=== PATIENT | female | born 1940 | race Caucasian/White ===

== ENCOUNTER 2019-11-12 09:01 | Observation (INO) | payer MEDICARE ==
[~2019-11-12 09:01] MED LIST: ACETAMINOPHEN TAB 500 MG TAB PO ONE; DEXAMETHASONE SOD PHOSPHATE 10 MG/ML 1 ML VIAL IV ONE; HEPARIN SODIUM,PORCINE 5,000 UNIT/ML 1 ML VIAL SQ ONE; HYDROmorphone 0.5 MG/0.5 ML SYRINGE IVP PRN; LIDOCAINE 1% (10MG/ML) FOR IV START INTRADERMA PRN; ONDANSETRON 4 MG/2 ML VIAL IVP ONE
[2019-11-12] MEDS: LACTATED RINGERS 1,000 ML IV SCH ×2 (09:53→16:39)
[2019-11-12 10:36] LABS: Anisocytosis Slight; Basophils % (A) 1 %; Eosinophils % (A) 1 %; HCT 35.6 % (34.0-46.0); HGB 10.5 gm/dL (11.4-16.0); Hypochromasia Marked; Lymphocytes # (A) 0.6 k/uL (1.0-4.8); Lymphocytes % (A) 19 %; MCHC 29.6 g/dL (31.0-37.0); MCV 101.4 fL (80.0-100.0); Macrocytosis Moderate; Mean Platelet Volume 8.5; Monocytes # (A) 0.3 k/uL (0-1.0); Monocytes % (A) 10 %; Neutrophils # (A) 2.1 k/uL (1.3-7.7); Neutrophils % (A) 66 %; Platelet Count 118 k/uL (150-450); RBC 3.51 m/uL (3.80-5.40); RDW 19.1 % (11.5-15.5); WBC 3.2 k/uL (3.8-10.6)
[2019-11-12 10:40] LABS: INR 1.4 (<1.2); Prothrombin Time 13.7 sec (9.0-12.0)
[2019-11-12 11:01] LABS: Albumin 2.8 g/dL (3.5-5.0); Calcium 8.7 mg/dL (8.4-10.2); Magnesium 1.7 mg/dL (1.6-2.3); Phosphorus 3.2 mg/dL (2.5-4.5); Potassium 4.3 mmol/L (3.5-5.1); Total Protein 7.2 g/dL (6.3-8.2)
--- NOTE | 2019-11-12 11:05 | P.GSHP ---
History of Present Illness H&P Date: 11/12/19 Chief Complaint: Umbilical hernia 79-year-old female with history of swelling at the umbilicus for the last several weeks. Describes increasing pain there. Patient found recently to have significant liver dysfunction with ascites and evidence of developing cirrhosis. Etiology unclear but may be related to previous adjuvant breast cancer therapy. Patient denies alcohol use in the past. Patient has been on diuretics for the last few weeks now. She has had some issues with electrolyte imbalance that is being corrected. Currently on Aldactone. 2 days ago had a single dose of Lasix as well. Was complaining of leg swelling which has improved. Patient has informed her family that she is having enough pain at the hernia site that she would rather risk having it repaired than living with it any longer. No change in bowel habits. Labs today show mild leukopenia and thrombocytopenia. INR 1.4. CMP pending. She has not had a paracentesis thus far. Plan is for fluid to be sent intraoperatively for various studies. Past Medical History Past Medical History: Cancer, Hypertension, Thyroid Disorder Additional Past Medical History / Comment(s): BREAST CANCER History of Any Multi-Drug Resistant Organisms: None Reported Past Surgical History: Breast Surgery, Orthopedic Surgery Additional Past Surgical History / Comment(s): RIGHT WRIST -WITH A PLATE Past Anesthesia/Blood Transfusion Reactions: No Reported Reaction Smoking Status: Never smoker - Past Family History Mother Family Medical History: Coronary Artery Disease (CAD) Father Family Medical History: Cancer Additional Family Medical History / Comment(s): LUNG CANCER Medications and Allergies Home Medications Medication Instructions Recorded Confirmed Type Folic Acid 1 mg PO DAILY 11/09/19 11/12/19 History Levothyroxine Sodium [Synthroid] 25 mcg PO DAILY 11/09/19 11/12/19 History Magnesium 250 mg PO TID 11/09/19 11/12/19 History Potassium Chloride [Klor-Con 20] 20 meq PO DAILY 11/09/19 11/12/19 History Spironolactone [Aldactone] 25 mg PO DAILY 11/09/19 11/12/19 History Allergies Allergy/AdvReac Type Severity Reaction Status Date / Time No Known Allergies Allergy Verified 11/12/19 09:21 Surgical - Exam Vital Signs Temp Pulse Resp BP Pulse Ox 98.4 F 110 H 18 171/79 99 11/12/19 09:34 11/12/19 09:34 11/12/19 09:34 11/12/19 09:34 11/12/19 09:34 Physical exam: General: Well-developed, well-nourished HEENT: Normocephalic, sclerae nonicteric Abdomen: Mildly distended, not tense, fluid wave present, fluid within the umbilical hernia noted which is reducible and mildly tender, skin is viable Extremities: Mild edema Neuro: Alert and oriented Results - Labs 11/12/19 10:25 Abnormal Lab Results - Last 24 Hours (Table) 11/12/19 11/12/19 Range/Units 10:25 10:25 WBC 3.2 L (3.8-10.6) k/uL RBC 3.51 L (3.80-5.40) m/uL Hgb 10.5 L (11.4-16.0) gm/dL MCV 101.4 H (80.0-100.0) fL MCHC 29.6 L (31.0-37.0) g/dL RDW 19.1 H (11.5-15.5) % Plt Count 118 L (150-450) k/uL Lymphocytes # 0.6 L (1.0-4.8) k/uL PT 13.7 H (9.0-12.0) sec INR 1.4 H (<1.2) Assessment and Plan (1) Umbilical hernia Narrative/Plan: Clinical scenario discussed with the patient her and her daughter. Previously I've discussed her case with her son-in-law Dr. Weiss and her son Dr. Dawson Javier on multiple occasions. Patient is high-risk for any inter vention. Despite that patient having significant symptoms related to this hernia and everyone is in agreement that surgical intervention is reasonable given her degree of complaints. Will perform paracentesis intraoperatively. Fluid will be sent off for various studies. No mesh will be utilized with the surgical repair given the presence of significant ascites. Plan for admission to the hospital overnight to monitor the patient's fluid status closely. Patient lives near [place] but will be staying with her family for the next several days. Risks of bleeding, infection, recurrence, bladder and bowel injury, numbness, nerve injury, ascites leak, peritonitis, wound infection, anesthesia related complications were discussed with the patient and her family. The patient understands and wishes to proceed. Current Visit: Yes Status: Acute Code(s): K42.9 - UMBILICAL HERNIA WITHOUT OBSTRUCTION OR GANGRENE SNOMED Code(s): 201871489
[2019-11-12] MEDS ORDERED: fentaNYL (PF) 50 MCG/ML 2 ML AMP ONE (11:09)
[2019-11-12] MEDS ORDERED: LIDOCAINE 1% INJ 10MG/ML (20 ML MDV) ONE (11:09)
[2019-11-12] MEDS ORDERED: SUCCINYLCHOLINE CHLORIDE 100 MG/5 ML SYR IV ONE (11:09)
[2019-11-12] MEDS ORDERED: ETOMIDATE 2 MG/ML 10 ML VIAL ONE (11:09)
[2019-11-12] MEDS ORDERED: BUPIVACAINE (PF) 0.25% 30 ML VIAL SQ ONE (12:15)
[2019-11-12] MEDS ORDERED: ONDANSETRON 4 MG/2 ML VIAL IVP PRN (12:35)
[2019-11-12] MEDS ORDERED: HYDROmorphone 0.5 MG/0.5 ML SYRINGE IVP PRN (12:35)
[2019-11-12] MEDS ORDERED: HYDROcodone/APAP 5-325MG 1 EACH TAB PO PRN (12:35)
[2019-11-12] MEDS ORDERED: LACTATED RINGERS 1,000 ML IV ONE (12:35)
[2019-11-12] MEDS ORDERED: NALOXONE 0.4 MG/ML 1 ML VIAL IV PRN (12:35)
--- NOTE | 2019-11-12 14:34 | P.OP ---
Date of Procedure: 11/12/19 Procedure(s) Performed: PREOPERATIVE DIAGNOSIS: Umbilical hernia with abdominal ascites POSTOPERATIVE DIAGNOSIS: Same PROCEDURE: Umbilical herniorrhaphy with drainage abdominal ascites SURGEON: Arcadio EBL: Minimal ANESTHESIA: General COMPLICATIONS: None OPERATIVE PROCEDURE: The patient was placed in the operating table in the supine position. A periumbilical incision was made using the scalpel. The subcutaneous tissues were dissected bluntly. The hernia sac was identified. The umbilical attachments to the fascia were divided using electrocautery. The hernia sac was dissected back to the fascial defect. A small opening in the hernia sac was made and the ascitic fluid was evacuated. A little over 5 L was removed. This was a yellow serous fluid without particulate matter. Fluid was sampled and sent for Gram stain, culture, cell count, cytology, LDH, protein, glucose. The hernia sac was partially excised and ligated using both 3-0 Vicryl and 2-0 Vicryl sutures. This was reduced back into the preperitoneal space. No mesh was utilized during this procedure. The defect was closed using interrupted [id number] 0 Ethibond sutures. The subcutaneous tissues were reapproximated using inverted 3-0 Vicryl sutures. The umbilicus was tacked back down to the fascia using a 3-0 Vicryl suture. The skin was closed using 4-0 Monocryl sutures. Steri-Strips and sterile dressings were then applied. DISPOSITION: Stable to recovery room
[2019-11-12 14:37] LABS: Appearance,BF Clear
[2019-11-12 15:05] LABS: RBC, Body Fluid 35 /uL
[2019-11-12 15:06] LABS: Nucleated Cells, Body Fluid 20 /uL
[2019-11-12 15:09] LABS: Mononuclear WBC,Body Fluid 95 %; Polynuclear WBC,Body Fluid 5 %; Total Cells Counted,Body Fluid 100
[2019-11-12] MEDS: ALBUMIN HUMAN 25% 50 ML in EMPTY BAG 1 BAG IVPB SCH (15:30)
--- NOTE | 2019-11-12 18:49 | P.CONS ---
History of Present Illness - Reason for Consult Consult date: 11/12/19 medical management Requesting physician: Silvano Ervin - Chief Complaint Medical management - History of Present Illness 79-year-old female with PMH of hypothyroidism, hypertension controlled with diet off antihypertensive, cirrhosis of unknown etiology, history of breast cancer, umbilical [facility]nia [facility]. She underwent umbilical herniorrhaphy with drainage of abdominal ascites. [facility] has been consulted for medical management of this patient. Patient was seen after her surgery. Patient reports significant improvement in her abdominal discomfort and bloating after her surgery. She currently has no pain. She is requesting a coffee. She does report some lower extremity swelling. She denies any headache, nausea or vomiting, fever or chills, cough, chest pain, shortness of breath, palpitations, changes in urination or bowel habits. No changes in appetite or weight. She denies any dizziness, num bness/weakness/tingling of the extremities. Her vital signs are stable except for tachycardia in the 110s. CBC shows leukopenia of 3.2 and hemoglobin of 10.5 with MCV of 101.4 and platelet count of 118. INR is 1.4. CMP shows chloride of 110, BUN of 23, glucose of 106, total bilirubin of 2, AST of 40. Review of Systems All systems: negative Past Medical History Past Medical History: Cancer, Hypertension, Thyroid Disorder Additional Past Medical History / Comment(s): BREAST CANCER History of Any Multi-Drug Resistant Organisms: None Reported Past Surgical History: Breast Surgery, Hernia Repair, Orthopedic Surgery Additional Past Surgical History / Comment(s): 2015-Breast surgery with removal of right side lymph nodes. RIGHT WRIST-WITH A PLATE. Repair of umbilical Hernia 11/12/19. Drainage of paritoneal fluid (5L) 11/12/19. Past Anesthesia/Blood Transfusion Reactions: No Reported Reaction Past Psychological History: Anxiety Smoking Status: Never smoker Past Alcohol Use History: None Reported Past Drug Use History: None Reported - Past Family History Mother Family Medical History: Coronary Artery Disease (CAD) Father Family Medical History: Cancer Additional Family Medical History / Comment(s): LUNG CANCER Medications and Allergies Home Medications Medication Instructions Recorded Confirmed Type Folic Acid 1 mg PO DAILY 11/09/19 11/12/19 History Levothyroxine Sodium [Synthroid] 25 mcg PO DAILY 11/09/19 11/12/19 History Magnesium 250 mg PO TID 11/09/19 11/12/19 History Potassium Chloride [Klor-Con 20] 20 meq PO DAILY 11/09/19 11/12/19 History Spironolactone [Aldactone] 25 mg PO DAILY 11/09/19 11/12/19 History Allergies Allergy/AdvReac Type Severity Reaction Status Date / Time No Known Allergies Allergy Verified 11/12/19 09:21 Physical Exam Vitals: Vital Signs Temp Pulse Pulse Resp BP BP Pulse Ox 11/12/19 16:28 97.4 F L 114 H 16 141/65 98 11/12/19 15:28 112 H 153/70 98 11/12/19 15:14 97.2 F L 112 H 16 149/68 98 11/12/19 14:59 115 H 17 154/67 96 11/12/19 13:45 106 H 18 148/72 95 11/12/19 13:12 104 H 16 136/60 95 11/12/19 12:57 104 H 16 142/68 95 11/12/19 12:42 106 H 16 142/68 95 11/12/19 12:27 97.8 F 105 H 14 166/80 95 11/12/19 09:34 98.4 F 110 H 18 171/79 99 Intake and Output 11/12/19 11/12/19 11/12/19 06:59 14:59 22:59 Intake Total 650 Output Total 10 Balance 640 Intake: IV 650 Output: Estimated Blood Loss 10 Other: Weight 73.028 kg General: [non toxic], [no distress], [appears at stated age] Derm: [warm], [dry] Head: [atraumatic], [normocephalic], [symmetric] Eyes: [EOMI], [no lid lag], [anicteric sclera] Mouth: [no lip lesion], [mucus membranes moist] Cardiovascular: [S1S2 reg], [tachycardic], [positive DP pulse bilateral], Lungs: [CTA bilateral], [no rhonchi, no rales] , [no accessory muscle use] Abdominal: [soft], [ nontender to palpation], [no guarding], [no appreciable organomegaly], [abdominal binder applied] Ext: [no gross muscle atrophy], [1-2+ pitting edema lower extremity bilateral], [no contractures] Neuro: [no focal neurologic deficits] Psych: [alert and oriented 3] Results CBC & Chem 7: 11/12/19 10:25 11/12/19 10:25 Labs: Abnormal Lab Results - Last 24 Hours (Table) 11/12/19 11/12/19 11/12/19 Range/Units 10:25 10:25 10:25 WBC 3.2 L (3.8-10.6) k/uL RBC 3.51 L (3.80-5.40) m/uL Hgb 10.5 L (11.4-16.0) gm/dL MCV 101.4 H (80.0-100.0) fL MCHC 29.6 L (31.0-37.0) g/dL RDW 19.1 H (11.5-15.5) % Plt Count 118 L (150-450) k/uL Lymphocytes # 0.6 L (1.0-4.8) k/uL PT 13.7 H (9.0-12.0) sec INR 1.4 H (<1.2) Chloride 110 H (98-107) mmol/L BUN 23 H (7-17) mg/dL Glucose 106 H (74-99) mg/dL Total Bilirubin 2.0 H (0.2-1.3) mg/dL AST 40 H (14-36) U/L Albumin 2.8 L (3.5-5.0) g/dL Assessment and Plan Assessment: Liver cirrhosis of unknown etiology Hypothyroidism Pancytopenia with Macrocytosis Supratherapeutic INR Elevated BUN Patient is POD 0 umbillical herniorrhaphy with drainage of about 5 liters of abdominal ascites. Her pain will be controlled with Dilaudid as needed and she will be given Zofran as needed for nausea or vomiting. Ascitic fluid has been sent out for culture, LDH and glucose. GI has been consulted and workup is underway for etiology of cirrhosis (alpha-1 antitrypsin, alpha-fetoprotein, MARGARET, antimitochondrial antibody, ceruloplasmin, liver kidney microsomal antibody, protein electrophoresis and smooth muscle antibody). Iron studies have also been ordered. Patient has been started on Aldactone by GI. There are plans for liver ultrasound tomorrow morning by GI. She will be started on a low salt diet. Her Synthroid will be restarted for hypothyroidism. Her INR of 1.2 is likely related to cirrhosis. Her BUN of 23 is likely related to dehydration and she has been advised hydration by mouth. Plans to repeat CBC and CMP tomorrow morning. SCD boots for DVT prophylaxis given supratherapeutic INR. Patient will be FULL CODE. Take you for this consult. Please call with any additional questions or concerns.
[2019-11-12] MEDS: DOCUSATE 100 MG CAP PO SCH (20:19)
[2019-11-12 21:29] LABS: Glucose, BF Source Ascites; Glucose, Body Fluid 110 mg/dL; LDH, Body Fluid Source Ascites; Total Protein, Body Fluid 2300 mg/dL
[2019-11-13] MEDS ORDERED: LEVOTHYROXINE 25 MCG TAB PO SCH (06:30)
[2019-11-13 08:41] LABS: Anisocytosis Slight; Basophils % (A) 0 %; Eosinophils % (A) 0 %; HCT 29.4 % (34.0-46.0); HGB 9.2 gm/dL (11.4-16.0); Hypochromasia Marked; Lymphocytes # (A) 0.6 k/uL (1.0-4.8); Lymphocytes % (A) 13 %; MCH 31.5 pg (25.0-35.0); MCHC 31.2 g/dL (31.0-37.0); MCV 100.9 fL (80.0-100.0); Macrocytosis Moderate; Mean Platelet Volume 8.7; Monocytes # (A) 0.3 k/uL (0-1.0); Monocytes % (A) 7 %; Neutrophils # (A) 3.8 k/uL (1.3-7.7); Neutrophils % (A) 78 %; Platelet Count 100 k/uL (150-450); RBC 2.92 m/uL (3.80-5.40); RDW 18.8 % (11.5-15.5); WBC 4.8 k/uL (3.8-10.6)
--- NOTE | 2019-11-13 08:58 | P.CONS ---
History of Present Illness - Reason for Consult Consult date: 11/12/19 Ascites Requesting physician: Lindsey Calderon - Chief Complaint Hernia, ascites - History of Present Illness 79-year-old female with a medical history significant for hypothyroidism, hypertension, history of breast cancer and suspected cirrhosis with fluid overload presented to the hospital due to fluid overload and an umbilical hernia. Patient had been experiencing increased abdominal swelling and swelling of the extremities have 3 months. She had associated weight gain with the fluid overload. Patient presented to the hospital where she underwent umbilical he rnia repair and drainage of the ascites with over 5 L of ascites removed. Patient has been experiencing these symptoms of fluid overload over the past 3 months and has been started on Lasix therapy. She subsequently developed hyponatremia and medication was stopped. She does report a prior history of elevated liver enzymes but denies any treatment for these elevations. She has no significant history of heavy alcohol abuse. No prior history of decompensated liver disease denying any jaundice, encephalopathy or fluid overload current presentation. She did experience decreased oral intake and shortness of breath and associated nausea. She was previously underwent echocardiogram which was within normal limits per report and has also undergone a computed tomography scan of the abdomen with findings suggestive of a nodular cirrhotic liver and portal hypertension. Laboratory evaluation on presentation significant for WBC 3.2, hemoglobin 10.5, platelet count 118,000, INR 1.4, total bilirubin 2, alkaline phosphatase 122, AST 40 and ALT 15. Review of Systems REVIEW OF SYSTEMS: CONSTITUTIONAL: Denies any fevers, chills, but did experience with nausea and fatigue in association with fluid overload. CARDIOVASCULAR: Denies any chest pain, palpitations high or low blood pressures RESPIRATORY: Denies any shortness of breath, hemoptysis or cough. GENITOURINARY: No dysuria or hematuria. MUSCULOSKELETAL: No focal weakness reported. SKIN: Denies any new rashes or lesions, jaundice or pallor, but has had bilateral lower extremity swelling. PSYCHIATRIC: Denies any depression or anxiety, but does report mood was depressed in association with her poor quality of life with her symptoms of fluid overload and abdominal pain. NEUROLOGY: Denies headache, denies any new focal deficits. EARS/NOSE/THROAT: No recent hearing change, congestion, nasal discharge or sore throat, but is hard of hearing at baseline. EYES: No pain in eyes, discharge or change in vision. GASTROINTESTINAL: As per HPI. Past Medical History Past Medical History: Cancer, Hypertension, Thyroid Disorder Additional Past Medical History / Comment(s): BREAST CANCER History of Any Multi-Drug Resistant Organisms: None Reported Past Surgical History: Breast Surgery, Hernia Repair, Orthopedic Surgery Additional Past Surgical History / Comment(s): 2015-Breast surgery with removal of right side lymph nodes. RIGHT WRIST-WITH A PLATE. Repair of umbilical Hernia 11/12/19. Drainage of paritoneal fluid (5L) 11/12/19. Past Anesthesia/Blood Transfusion Reactions: No Reported Reaction Past Psychological History: Anxiety Smoking Status: Never smoker Past Alcohol Use History: None Reported Past Drug Use History: None Reported - Past Family History Mother Family Medical History: Coronary Artery Disease (CAD) Father Family Medical History: Cancer Additional Family Medical History / Comment(s): LUNG CANCER Medications and Allergies Home Medications Medication Instructions Recorded Confirmed Type Folic Acid 1 mg PO DAILY 11/09/19 11/12/19 History Levothyroxine Sodium [Synthroid] 25 mcg PO DAILY 11/09/19 11/12/19 History Magnesium 250 mg PO TID 11/09/19 11/12/19 History Potassium Chloride [Klor-Con 20] 20 meq PO DAILY 11/09/19 11/12/19 History Spironolactone [Aldactone] 25 mg PO DAILY 11/09/19 11/12/19 History Allergies Allergy/AdvReac Type Severity Reaction Status Date / Time No Known Allergies Allergy Verified 11/12/19 09:21 Physical Exam Vitals: Vital Signs Temp Pulse Pulse Resp BP BP Pulse Ox 11/12/19 15:28 112 H 153/70 98 11/12/19 15:14 97.2 F L 112 H 16 149/68 98 11/12/19 14:59 115 H 17 154/67 96 11/12/19 13:45 106 H 18 148/72 95 11/12/19 13:12 104 H 16 136/60 95 11/12/19 12:57 104 H 16 142/68 95 11/12/19 12:42 106 H 16 142/68 95 11/12/19 12:27 97.8 F 105 H 14 166/80 95 11/12/19 09:34 98.4 F 110 H 18 171/79 99 Intake and Output 11/12/19 11/12/19 11/12/19 06:59 14:59 22:59 Intake Total 650 Output Total 10 Balance 640 Intake: IV 650 Output: Estimated Blood Loss 10 Other: Weight 73.028 kg On physical examination, patient appears comfortable in no apparent distress. HEAD: Normocephalic, atraumatic. EYES: No scleral icterus. No conjunctival injection. MOUTH: No lesions, tongue midline. NECK: Trachea midline, no gross abnormalities. CHEST: No respiratory distress or wheezing. HEART: Regular rate and rhythm. ABDOMEN: Soft, obese. Bowel sounds are positive. No organomegaly. No guarding or rigidity. EXTREMITIES: No pedal edema. SKIN: No rashes, no jaundice. NEUROLOGIC: Alert and oriented x3. No focal deficits. Results CBC & Chem 7: 11/12/19 10:25 11/12/19 10:25 Labs: Abnormal Lab Results - Last 24 Hours (Table) 11/12/19 11/12/19 11/12/19 Range/Units 10:25 10:25 10:25 WBC 3.2 L (3.8-10.6) k/uL RBC 3.51 L (3.80-5.40) m/uL Hgb 10.5 L (11.4-16.0) gm/dL MCV 101.4 H (80.0-100.0) fL MCHC 29.6 L (31.0-37.0) g/dL RDW 19.1 H (11.5-15.5) % Plt Count 118 L (150-450) k/uL Lymphocytes # 0.6 L (1.0-4.8) k/uL PT 13.7 H (9.0-12.0) sec INR 1.4 H (<1.2) Chloride 110 H (98-107) mmol/L BUN 23 H (7-17) mg/dL Glucose 106 H (74-99) mg/dL Total Bilirubin 2.0 H (0.2-1.3) mg/dL AST 40 H (14-36) U/L Albumin 2.8 L (3.5-5.0) g/dL CT scan - abdomen: other (Computed tomography scan from outside facility with findings of a cirrhotic-appearing liver and portal hypertension.) Assessment and Plan (1) Ascites Narrative/Plan: Pleasant 79-year-old female with multiple medical morbidities presenting to the hospital due to painful umbilical hernia and fluid overload. Patient has had increasing lower extremity swelling andIV past 3 months which has exacerbated and umbilical hernia. She is status post repair with the surgical service. She denies any prior history of liver disease but has had previous elevations of liver enzymes. She has been on tamoxifen in the past after treatment for breast cancer. She was previously overweight and has been hypertensive in the past. She denies any signs or symptoms of decompensated liver disease prior to current presentation. She did have a computed tomography scan at outside facility with running suggestive of a cirrhotic liver and fluid overload. She previously had a history of peptic ulcer disease. She currently denies any signs and symptoms of GI bleeding. 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 Full serology will be ordered to rule out intrinsic liver disease. Current Visit: Yes Status: Acute Code(s): R18.8 - OTHER ASCITES SNOMED Code(s): 168815118 (2) Umbilical hernia Current Visit: Yes Status: Acute Code(s): K42.9 - UMBILICAL HERNIA WITHOUT OBSTRUCTION OR GANGRENE SNOMED Code(s): 555671397 Plan: Supportive care Okay for sodium restricted diet Aldactone increased to 50 mg daily Full liver serologies ordered Ultrasound of the abdomen ordered Await fluid studies from ascites Case discussed with the patient and her family at length Thank you for allowing us to participate in the care of the patient we will continue to follow
[2019-11-13] MEDS ORDERED: PANTOPRAZOLE 40 MG/10 ML VIAL IV SCH (09:00)
[2019-11-13] MEDS ORDERED: SPIRONOLACTONE 25 MG TAB PO SCH ×2 (09:00)
[2019-11-13 09:40] LABS: Albumin 2.4 g/dL (3.5-5.0); Calcium 8.2 mg/dL (8.4-10.2); Magnesium 1.6 mg/dL (1.6-2.3); Potassium 4.2 mmol/L (3.5-5.1); Total Bilirubin 1.2 mg/dL (0.2-1.3); Total Protein 6.1 g/dL (6.3-8.2)
[2019-11-13] MEDS: DOCUSATE 100 MG CAP PO SCH (10:07)
--- NOTE | 2019-11-13 10:23 | P.PN ---
<Katelin Manuel - Last Filed: 11/13/19 10:11> Subjective Progress Note Date: 11/13/19 CHIEF COMPLAINT: Umbilical hernia HISTORY OF PRESENT ILLNESS: Patient is status post umbilical herniorrhaphy with drainage of 5 L abdominal ascites. POD #1. Patient examined at the bedside this morning. She is sitting in the chair. She reports her pain is tolerable. Tolerating diet. Denies nausea or vomiting. WBC 4.8. Hemoglobin 9.2. Blood pressure stable. HR 110s. Afebrile. PHYSICAL EXAM: VITAL SIGNS: Reviewed. GENERAL: Well-developed in no acute distress. HEENT: No sclera icterus. Extraocular movements grossly intact. Moist buccal mucosa. Head is atraumatic, normocephalic. ABDOMEN: Soft. Nondistended. Dressing CDI. Abdominal binder noted. NEUROLOGIC: Alert and oriented. Cranial nerves II through XII grossly intact. ASSESSMENT: 1. Umbilical hernia with abdominal ascites, status post umbilical herniorrhaphy with drainage of 5 L abdominal ascites PLAN: -Continue diet as tolerated -Pain control -Incentive spirometer -Activity as tolerated -GI consulted. Abdominal US ordered. Await results -Await cytology from ascites fluid Nurse practitioner note has been reviewed by physician. Signing provider agrees with the documented findings, assessment, and plan of care. Objective - Vital Signs Vital signs: Vital Signs Temp 98.5 F 11/13/19 05:40 Pulse 115 H 11/13/19 05:40 Resp 18 11/13/19 05:40 BP 143/79 11/13/19 05:40 Pulse Ox 95 11/13/19 05:40 Intake & Output 11/12/19 11/13/19 11/13/19 18:59 06:59 18:59 Intake Total 650 300 Output Total 10 Balance 640 300 Weight 73.028 kg 68.9 kg Intake: IV 650 Intake, IV Titration 210 Amount Lactated Ringers 1,000 ml 210 @ 20 mls/hr IV .Q24H [facility] Rx#:[id number] Oral 90 Output: Estimated Blood Loss 10 Other: Voiding Method Toilet Toilet # Voids 3 - Labs CBC & Chem 7: 11/13/19 07:41 11/13/19 07:41 Labs: Abnormal Lab Results - Last 24 Hours (Table) 11/12/19 11/12/19 11/12/19 Range/Units 10:25 10:25 10:25 WBC 3.2 L (3.8-10.6) k/uL RBC 3.51 L (3.80-5.40) m/uL Hgb 10.5 L (11.4-16.0) gm/dL Hct (34.0-46.0) % MCV 101.4 H (80.0-100.0) fL MCHC 29.6 L (31.0-37.0) g/dL RDW 19.1 H (11.5-15.5) % Plt Count 118 L (150-450) k/uL Lymphocytes # 0.6 L (1.0-4.8) k/uL PT 13.7 H (9.0-12.0) sec INR 1.4 H (<1.2) Chloride 110 H (98-107) mmol/L BUN 23 H (7-17) mg/dL Glucose 106 H (74-99) mg/dL Calcium (8.4-10.2) mg/dL Total Bilirubin 2.0 H (0.2-1.3) mg/dL AST 40 H (14-36) U/L Total Protein (6.3-8.2) g/dL Albumin 2.8 L (3.5-5.0) g/dL 11/13/19 11/13/19 Range/Units 07:41 07:41 WBC (3.8-10.6) k/uL RBC 2.92 L (3.80-5.40) m/uL Hgb 9.2 L (11.4-16.0) gm/dL Hct 29.4 L (34.0-46.0) % MCV 100.9 H (80.0-100.0) fL MCHC (31.0-37.0) g/dL RDW 18.8 H (11.5-15.5) % Plt Count 100 L (150-450) k/uL Lymphocytes # (1.0-4.8) k/uL PT (9.0-12.0) sec INR (<1.2) Chloride 109 H (98-107) mmol/L BUN 23 H (7-17) mg/dL Glucose 119 H (74-99) mg/dL Calcium 8.2 L (8.4-10.2) mg/dL Total Bilirubin (0.2-1.3) mg/dL AST (14-36) U/L Total Protein 6.1 L (6.3-8.2) g/dL Albumin 2.4 L (3.5-5.0) g/dL Microbiology - Last 24 Hours (Table) 11/12/19 12:11 Gram Stain - Preliminary Ascites Fluid Body Fluid Culture - Preliminary 11/12/19 12:11 Anaerobic Culture - Preliminary Ascites Fluid <Silvano Ervin - Last Filed: 11/13/19 17:26> Subjective As above. Patient doing well. Labs noted. Sitting up in chair. Patient would like to go home. She was tachycardic last night. Recent heart rate in the 90s however. On examination some of the ascites seems to have recurred. Patient and family will do abdominal circumference measurements 1-2 times daily post discharge. If ascites seems to be getting back to its preoperative state Will consider therapeutic paracentesis or Tuesday of this week. September discharge. We will be in contact with family post discharge. Objective - Vital Signs Vital signs: Vital Signs Temp 98.0 F 11/13/19 12:19 Pulse 94 11/13/19 12:19 Resp 16 11/13/19 12:19 BP 134/76 11/13/19 12:19 Pulse Ox 98 11/13/19 12:19 Intake & Output 11/12/19 11/13/19 11/13/19 18:59 06:59 18:59 Intake Total 650 300 80 Output Total 10 Balance 640 300 80 Weight 73.028 kg 68.9 kg 68.9 kg Intake: IV 650 Intake, IV Titration 210 80 Amount Lactated Ringers 1,000 ml 210 80 @ 20 mls/hr IV .Q24H [facility] Rx#:[id number] Oral 90 Output: Estimated Blood Loss 10 Other: Voiding Method Toilet Toilet # Voids 3 3 # Bowel Movements 2 - Labs CBC & Chem 7: 11/13/19 07:41 11/13/19 07:41 Labs: Abnormal Lab Results - Last 24 Hours (Table) 11/13/19 11/13/19 11/13/19 Range/Units 07:41 07:41 07:41 RBC 2.92 L (3.80-5.40) m/uL Hgb 9.2 L (11.4-16.0) gm/dL Hct 29.4 L (34.0-46.0) % MCV 100.9 H (80.0-100.0) fL RDW 18.8 H (11.5-15.5) % Plt Count 100 L (150-450) k/uL Lymphocytes # 0.6 L (1.0-4.8) k/uL Chloride 109 H (98-107) mmol/L BUN 23 H (7-17) mg/dL Glucose 119 H (74-99) mg/dL Calcium 8.2 L (8.4-10.2) mg/dL Iron 35 L (50-170) ug/dL Total Protein 6.1 L (6.3-8.2) g/dL Total Protein (PEP) 5.7 L (6.2-8.2) g/dL Albumin 2.4 L (3.5-5.0) g/dL Microbiology - Last 24 Hours (Table) 11/12/19 12:11 Gram Stain - Preliminary Ascites Fluid Body Fluid Culture - Preliminary 11/12/19 12:11 Anaerobic Culture - Preliminary Ascites Fluid Assessment and Plan (1) Umbilical hernia Status: Acute Code(s): K42.9 - UMBILICAL HERNIA WITHOUT OBSTRUCTION OR GANGRENE SNOMED Code(s): 661114682
[2019-11-13 10:35] LABS: Poikilocytosis (M) Present; Polychromasia Present
--- NOTE | 2019-11-13 10:47 | US ---
EXAMINATION TYPE: US abdomen complete DATE OF EXAM: 11/13/2019 COMPARISON: NONE CLINICAL HISTORY: ascites. EXAM MEASUREMENTS: Liver Length: 11.7 cm Gallbladder Wall: 0.4 cm CBD: 0.4 cm Spleen: 11.5 cm Right Kidney: 9.3 x 4.1 x 4.6 cm Left Kidney: 9.1 x 4.3 x 4.8 cm Technically difficult study performed portably. Patient has ascites. Pancreas: appears echogenic in its visualized portions Liver: wnl liver shows a nodular contour, coarse echotexture and is small. Gallbladder: No stones seen, there is gallbladder wall thickening Evidence for sonographic Montoya's sign: No CBD: wnl Spleen: wnl Right Kidney: No hydronephrosis or masses seen Left Kidney: No hydronephrosis or masses seen and there is increased cortical echogenicity lateral ly, cortical medullary differentiation is maintained bilaterally Upper IVC: wnl Abd Aorta: wnl, there is no aneurysm Ascites noted, largest pocket RLQ. IMPRESSION: There may be underlying cirrhosis, there is ascites, gallbladder wall thickening may be d ue to ascites. Possible medical renal disease.
[2019-11-13 12:22] VITALS: BP 134/76; PULSE 94; RESP 16; TEMP 98
[2019-11-13] MEDS ORDERED: PROPRANOLOL 20 MG TAB PO SCH (13:00)
--- NOTE | 2019-11-13 14:09 | P.PN ---
Subjective Progress Note Date: 11/13/19 Principal diagnosis: Medical management Patient was seen and examined. No acute events overnight. Patient reports no issues since her surgery. She reports some mild discomfort at the site of incision. Urinating freely. Able to have a bowel movement today. She denies any chest pain, shortness of breath or palpitations. No nausea or vomiting. No fever or chills. Looking forward to going home today. Objective - Vital Signs Vital signs: Vital Signs Temp 98.0 F 11/13/19 12:19 Pulse 94 11/13/19 12:19 Resp 16 11/13/19 12:19 BP 134/76 11/13/19 12:19 Pulse Ox 98 11/13/19 12:19 Intake & Output 11/12/19 11/13/19 11/13/19 18:59 06:59 18:59 Intake Total 650 300 Output Total 10 Balance 640 300 Weight 73.028 kg 68.9 kg Intake: IV 650 Intake, IV Titration 210 Amount Lactated Ringers 1,000 ml 210 @ 20 mls/hr IV .Q24H [facility] Rx#:[id number] Oral 90 Output: Estimated Blood Loss 10 Other: Voiding Method Toilet Toilet # Voids 3 - Exam General: [non toxic], [no distress], [appears at stated age] Derm: [warm], [dry] Head: [atraumatic], [normocephalic], [symmetric] Eyes: [EOMI], [no lid lag], [anicteric sclera] Mouth: [no lip lesion], [mucus membranes moist] Cardiovascular: [S1S2 reg], [tachycardic], [positive DP pulse bilateral], Lungs: [CTA bilateral], [no rhonchi, no rales] , [no accessory muscle use] Abdominal: [soft], [ nontender to palpation], [no guarding], [no appreciable organomegaly], [abdominal binder applied] Ext: [no gross muscle atrophy], [1+ pitting edema lower extremity bilateral], [no contractures] Neuro: [no focal neurologic deficits] Psych: [alert and oriented 3] - Labs CBC & Chem 7: 11/13/19 07:41 11/13/19 07:41 Labs: Abnormal Lab Results - Last 24 Hours (Table) 11/13/19 11/13/19 Range/Units 07:41 07:41 RBC 2.92 L (3.80-5.40) m/uL Hgb 9.2 L (11.4-16.0) gm/dL Hct 29.4 L (34.0-46.0) % MCV 100.9 H (80.0-100.0) fL RDW 18.8 H (11.5-15.5) % Plt Count 100 L (150-450) k/uL Lymphocytes # 0.6 L (1.0-4.8) k/uL Chloride 109 H (98-107) mmol/L BUN 23 H (7-17) mg/dL Glucose 119 H (74-99) mg/dL Calcium 8.2 L (8.4-10.2) mg/dL Total Protein 6.1 L (6.3-8.2) g/dL Albumin 2.4 L (3.5-5.0) g/dL Microbiology - Last 24 Hours (Table) 11/12/19 12:11 Gram Stain - Preliminary Ascites Fluid Body Fluid Culture - Preliminary 11/12/19 12:11 Anaerobic Culture - Preliminary Ascites Fluid Assessment and Plan Assessment: Liver cirrhosis of unknown etiology Tachycardia Hypothyroidism Pancytopenia with Macrocytosis Supratherapeutic INR Elevated BUN Patient is POD 1 umbillical herniorrhaphy with drainage of about 5 liters of abdominal ascites. Liver US shows findings consistent with cirrhosis. Ascitic fluid has been sent out for culture, LDH and glucose which is prelim negative so far. GI has been consulted and workup is underway for etiology of cirrhosis (alpha-1 antitrypsin, alpha-fetoprotein, MARGARET, antimitochondrial antibody, ceruloplasmin, liver kidney microsomal antibody, protein electrophoresis and smooth muscle antibody). Patient has been started on Aldactone by GI. Patient has been tachycardic since admission. I will discuss with GI regarding initiation of beta isabelle prior to discharge. Her Synthroid will be restarted for hypothyroidism. Iron studies have also been ordered. Her INR of 1.4 is likely related to cirrhosis. Her BUN of 23 is likely related to dehydration and she has been advised hydration by mouth. SCD boots for DVT prophylaxis given supratherapeutic INR. Patient will be FULL CODE. Take you for this consult. Please call with any additional questions or concerns.
[2019-11-13 16:11] VITALS: BMI 26.9
[2019-11-13 16:38] LABS: % Iron Saturation 13.89 (12.00-45.00)
[2019-11-13 16:44] LABS: Protein, Total 5.7 g/dL (6.2-8.2)
[2019-11-13 16:46] LABS: Ferritin 33.5 ng/mL (10.0-291.0)
[2019-11-13 17:32] LABS: Alpha Fetoprotein, Tumor Mkr <2.5 ng/mL (0.0-7.9)
--- NOTE | 2019-11-13 21:38 | P.PN ---
Subjective Progress Note Date: 11/13/19 Principal diagnosis: Ascites, cirrhosis Patient seen sitting bedside today doing well. No acute complaints. She has tolerated diet. Objective - Vital Signs Vital signs: Vital Signs Temp 98.5 F 11/13/19 05:40 Pulse 115 H 11/13/19 05:40 Resp 18 11/13/19 05:40 BP 143/79 11/13/19 05:40 Pulse Ox 95 11/13/19 05:40 Intake & Output 11/12/19 11/13/19 11/13/19 18:59 06:59 18:59 Intake Total 650 300 Output Total 10 Balance 640 300 Weight 73.028 kg 68.9 kg Intake: IV 650 Intake, IV Titration 210 Amount Lactated Ringers 1,000 ml 210 @ 20 mls/hr IV .Q24H [facility] Rx#:[id number] Oral 90 Output: Estimated Blood Loss 10 Other: Voiding Method Toilet Toilet # Voids 3 - Exam On physical examination, patient appears comfortable in no apparent distress. HEAD: Normocephalic, atraumatic. EYES: No scleral icterus. No conjunctival injection. MOUTH: No lesions, tongue midline. NECK: Trachea midline, no gross abnormalities. ABDOMEN: Soft, and appropriately tender status post hernia repair. Bowel sounds are positive. No organomegaly. No guarding or rigidity. EXTREMITIES: Bilateral pedal edema. SKIN: No rashes, no jaundice. NEUROLOGIC: Alert and oriented x3. - Labs CBC & Chem 7: 11/13/19 07:41 11/13/19 07:41 Labs: Abnormal Lab Results - Last 24 Hours (Table) 11/13/19 11/13/19 Range/Units 07:41 07:41 RBC 2.92 L (3.80-5.40) m/uL Hgb 9.2 L (11.4-16.0) gm/dL Hct 29.4 L (34.0-46.0) % MCV 100.9 H (80.0-100.0) fL RDW 18.8 H (11.5-15.5) % Plt Count 100 L (150-450) k/uL Lymphocytes # 0.6 L (1.0-4.8) k/uL Chloride 109 H (98-107) mmol/L BUN 23 H (7-17) mg/dL Glucose 119 H (74-99) mg/dL Calcium 8.2 L (8.4-10.2) mg/dL Total Protein 6.1 L (6.3-8.2) g/dL Albumin 2.4 L (3.5-5.0) g/dL Microbiology - Last 24 Hours (Table) 11/12/19 12:11 Gram Stain - Preliminary Ascites Fluid Body Fluid Culture - Preliminary 11/12/19 12:11 Anaerobic Culture - Preliminary Ascites Fluid Assessment and Plan (1) Ascites Narrative/Plan: Pleasant 79-year-old female with multiple medical morbidities presenting to the hospital due to painful umbilical hernia and fluid overload. Patient has had increasing lower extremity swelling andIV past 3 months which has exacerbated and umbilical hernia. She is status post repair with the surgical service. She denies any prior history of liver disease but has had previous elevations of liver enzymes. She has been on tamoxifen in the past after treatment for breast cancer. She was previously overweight and has been hypertensive in the past. She denies any signs or symptoms of decompensated liver disease prior to current presentation. She did have a computed tomography scan at outside facility with running suggestive of a cirrhotic liver and fluid overload. She previously had a history of peptic ulcer disease. She currently denies any signs and symptoms of GI bleeding. 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 Full serology will be ordered to rule out intrinsic liver disease. Status: Acute Code(s): R18.8 - OTHER ASCITES SNOMED Code(s): 388303150 (2) Umbilical hernia Status: Acute Code(s): K42.9 - UMBILICAL HERNIA WITHOUT OBSTRUCTION OR GANGRENE SNOMED Code(s): 547482221 Plan: Supportive care Okay for sodium restricted diet Aldactone increased to 50 mg daily Full liver serologies ordered Ultrasound of the abdomen with cirrhotic-appearing liver Protein from fluid studies on a ascites consistent with liver source, await albumin Case discussed with the patient and her family at length, plan is to follow-up in 3 weeks in the office and then established care in her local community with a patient scheduling manager Thank you for allowing us to participate in the care of the patient
[2019-11-14 11:22] LABS: ANA Pattern Speckled
[2019-11-14 12:30] LABS: Liver/Kidney Microsome Antibod 1.4 UNITS (<=20)
[2019-11-14 13:08] LABS: Ceruloplasmin 30.5 mg/dL (20.0-60.0)
[2019-11-15 06:32] LABS: Albumin, Fluid Source Ascites
[2019-11-15 13:45] LABS: Albumin 2.38 g/dL (3.80-4.90); Gamma Globulin 1.68 g/dL (0.70-1.50)
== END 2019-11-13 17:18 | disposition home or self-care (01) ==
LOC: OR 09:01 → EDBD 10:00 → 5NMEDONC 12:27 → OR 11-13 14:18
PROVIDERS: ADMIT Surgery; ATTEND Surgery
DX: K42.9 Umbilical hernia without obstruction or gangrene (principal); R18.8 Other ascites; R89.7 Abnormal histological findings in specimens from other organs, systems and tissues; D72.819 Decreased white blood cell count, unspecified; D69.6 Thrombocytopenia, unspecified; K74.60 Unspecified cirrhosis of liver; M79.89 Other specified soft tissue disorders; D61.818 Other pancytopenia; D75.89 Other specified diseases of blood and blood-forming organs; R79.1 Abnormal coagulation profile; R94.4 Abnormal results of kidney function studies; R00.0 Tachycardia, unspecified; I10 Essential (primary) hypertension; E03.9 Hypothyroidism, unspecified; F41.9 Anxiety disorder, unspecified; R16.0 Hepatomegaly, not elsewhere classified; E66.9 Obesity, unspecified; Z68.26 Body mass index [BMI] 26.0-26.9, adult; Z85.3 Personal history of malignant neoplasm of breast; Z79.899 Other long term (current) drug therapy; Z79.890 Hormone replacement therapy; Z87.898 Personal history of other specified conditions; Z98.890 Other specified postprocedural states; Z97.2 Presence of dental prosthetic device (complete) (partial); Z82.49 Family history of ischemic heart disease and other diseases of the circulatory system; Z80.1 Family history of malignant neoplasm of trachea, bronchus and lung
CPT/HCPCS: 49585; 97162; 97165; 86376; 88108; 88305; 80053 ×2; 82042; 82728; 89050; 83540; 83550; 83735 ×2; 84100 ×2; 85025 ×2; 85610; 88302; 83516 ×2; 82103; 82105; 84165; 82390; 86038; 86039; 87070; 87205; 87075; 82945; 83615; 84157; 76700; G0378; J1100; J0690; J2405; J2001; J3010; J0330; C9113

== ENCOUNTER → 2019-12-04 | Outpatient (CLI) | payer MEDICARE ==
[2019-12-04 13:34] LABS: Anisocytosis Slight; Basophils % (A) 0 %; Eosinophils # (A) 0.2 k/uL (0-0.7); Eosinophils % (A) 4 %; HCT 37.7 % (34.0-46.0); HGB 11.6 gm/dL (11.4-16.0); Hypochromasia Marked; Lymphocytes % (A) 26 %; MCH 32.4 pg (25.0-35.0); MCHC 30.8 g/dL (31.0-37.0); MCV 105.2 fL (80.0-100.0); Macrocytosis Marked; Monocytes # (A) 0.3 k/uL (0-1.0); Monocytes % (A) 7 %; Neutrophils # (A) 2.3 k/uL (1.3-7.7); Neutrophils % (A) 60 %; Platelet Count 105 k/uL (150-450); RBC 3.58 m/uL (3.80-5.40); RDW 17.6 % (11.5-15.5); WBC 3.9 k/uL (3.8-10.6)
[2019-12-04 13:39] LABS: Poikilocytosis (M) Present
[2019-12-04 13:40] LABS: INR 1.3 (<1.2); Prothrombin Time 12.8 sec (9.0-12.0)
[2019-12-04 13:42] LABS: ALT 18 U/L (4-34); AST 40 U/L (14-36); African American GFR (CKD) 49 (>60 ml/min/1.73 sqM); Albumin 2.6 g/dL (3.5-5.0); Albumin/Globulin Ratio 0.6; Alkaline Phosphatase 122 U/L (38-126); Anion Gap 6 mmol/L; Blood Urea Nitrogen 22 mg/dL (7-17); Calcium 8.5 mg/dL (8.4-10.2); Carbon Dioxide 22 mmol/L (22-30); Chloride 108 mmol/L (98-107); Globulin 4.1 g/dL; Glucose 103 mg/dL (74-99); Magnesium 1.6 mg/dL (1.6-2.3); Non-African American GFR(CKD) 43 (>60 ml/min/1.73 sqM); Phosphorus 3.1 mg/dL (2.5-4.5); Potassium 4.6 mmol/L (3.5-5.1); Sodium 136 mmol/L (137-145); Total Bilirubin 1.3 mg/dL (0.2-1.3); Total Protein 6.7 g/dL (6.3-8.2)
== END | disposition home or self-care (01) ==
LOC: LABWHC1 12:50
PROVIDERS: ATTEND Internal Medicine Infectious Disease
DX: K75.81 Nonalcoholic steatohepatitis (NASH) (principal); K74.60 Unspecified cirrhosis of liver; D50.8 Other iron deficiency anemias
CPT/HCPCS: 36415; 80053; 83735; 84100; 85025; 85610

== ENCOUNTER 2020-01-11 09:06 | Day surgery (SDC) | payer MEDICARE ==
[2020-01-11 09:37] LABS: Mean Platelet Volume 8.4; Platelet Count 141 k/uL (150-450)
[2020-01-11 10:07] LABS: INR 1.2 (<1.2); Prothrombin Time 11.9 sec (9.0-12.0)
[2020-01-11 10:18] VITALS: TEMP 98.1
[2020-01-11 10:36] VITALS: RESP 16
[2020-01-11 11:51] VITALS: BP 121/70; PULSE 77
--- NOTE | 2020-01-11 12:04 | US ---
Ultrasound-guided paracentesis. DATE OF EXAM: 01/11/2020 CLINICAL HISTORY: Ascites The procedure was discussed with the patient. The risks, complications, benefits, and alternatives we re discussed and any questions were answered. Informed consent was obtained. The patient was placed s upine on the ultrasound table and prepped and draped in the usual sterile fashion. All elements of maximal barrier technique were utilized. Under ultrasound guidance, access into the right lower quadrant was obtained, via the paracentesis catheter system and direct ultrasound guidanc e. Approximately 3 liters of straw-colored fluid was removed. The patient was stable throughout the proc edure and remained stable upon discharge from Department of Radiology. IMPRESSION: Successful paracentesis under ultrasound guidance.
== END 2020-01-11 11:40 | disposition home or self-care (01) ==
LOC: RADPROMAIN 09:06
PROVIDERS: ATTEND Internal Medicine
DX: R18.8 Other ascites (principal)
CPT/HCPCS: 36415; 49083; 82565; 85049; 85610; 85730